=== PATIENT | male | born 1980 | race Caucasian/White ===

== ENCOUNTER → 2020-10-24 | Outpatient (CLI) | payer BC ==
--- NOTE | 2020-10-24 08:08 | US ---
EXAMINATION TYPE: US abdomen complete DATE OF EXAM: 10/24/2020 COMPARISON: NONE CLINICAL HISTORY: R10.11 Right upper quadrant pain. RUQ pain radiating to right shoulder EXAM MEASUREMENTS: Liver Length: 19.4 cm Gallbladder Wall: 0.2 cm CBD: 0.4 cm Spleen: 13.2 x 10.0 x 5.6 cm Right Kidney: 14.3 x 5.7 x 5.3 cm Left Kidney: 13.8 x 6.7 x 5.7 cm Pancreas: hyperechoic with mid and tail obscured by overlying bowel gas Liver: enlarged, attenuated posteriorly suggests fatty liver Gallbladder: wnl Evidence for sonographic Gibson's sign: no CBD: wnl Spleen: hyperechoic, shadowing focus lateral spleen suggests splenic granuloma = 1.4 x 1.4 x 0.8cm; mildly prominent spleen as just greater than13.0cm. Right Kidney: No hydronephrosis or masses seen Left Kidney: No hydronephrosis or masses seen Upper IVC: wnl Abd Aorta: wnl The intrahepatic portion of the IVC and proximal abdominal aorta are within normal limits. There i s no evidence of cholelithiasis. Common bile duct is unremarkable. The visualized portions of the p ancreas are homogenous. Kidneys are symmetric and free of hydronephrosis. No renal lesions are se en. IMPRESSION: 1. Hepatomegaly with underlying fatty hepatic infiltration. 2. Borderline splenic prominence.
== END | disposition home or self-care (01) ==
LOC: RADUSWWP 06:56
PROVIDERS: ATTEND Internal Medicine
DX: K76.0 Fatty (change of) liver, not elsewhere classified (principal); D73.89 Other diseases of spleen
CPT/HCPCS: 76700

== ENCOUNTER → 2020-12-01 | Outpatient (CLI) | payer BC ==
[2020-12-01 18:24] LABS: Basophils # (A) 0.03 X 10*3/uL (0.00-0.10); Basophils % (A) 0.4 %; Eosinophils # (A) 0.04 X 10*3/uL (0.04-0.35); Eosinophils % (A) 0.6 %; HCT 46.2 % (39.6-50.0); HGB 15.1 g/dL (13.0-17.0); Lymphocytes # (A) 2.19 X 10*3/uL (0.90-5.00); Lymphocytes % (A) 32.7 %; MCH 29.1 pg (27.0-32.0); MCHC 32.7 g/dL (32.0-37.0); Mean Platelet Volume 10.1 fL (9.5-12.2); Monocytes # (A) 0.51 X 10*3/uL (0.20-1.00); Monocytes % (A) 7.6 %; Neutrophils # (A) 3.91 X 10*3/uL (1.80-7.70); Neutrophils % (A) 58.4 %; Platelet Count 248 X 10*3/uL (140-440); RBC 5.19 X 10*6/uL (4.40-5.60); RDW 14.2 % (11.5-14.5)
[2020-12-01 19:16] LABS: % Iron Saturation 19.73 (15.00-50.00); African American GFR (CKD) 109.4 (60.0-200.0); Albumin 4.6 g/dL (3.80-4.90); Albumin/Globulin Ratio 2.09 (1.60-3.17); Anion Gap 11.3 mmol/L (4.00-12.00); Calcium 9.7 mg/dL (8.7-10.3); Carbon Dioxide 25.7 mmol/L (21.6-31.8); Globulin 2.2 g/dL (1.6-3.3); Non-African American GFR(CKD) 94.4 (60.0-200.0); Potassium 3.9 mmol/L (3.5-5.5); Total Bilirubin 0.6 mg/dL (0.3-1.2); Total Protein 6.8 g/dL (6.2-8.2)
[2020-12-01 19:23] LABS: INR 0.95 (0.90-1.11); Prothrombin Time 10.4 sec (9.9-11.9)
[2020-12-01 19:24] LABS: Protein, Total 6.6 g/dL (6.2-8.2)
[2020-12-01 19:57] LABS: Ferritin 462.6 ng/mL (22.0-322.0)
[2020-12-02 10:14] LABS: Ceruloplasmin 28.5 mg/dL (20.0-60.0)
[2020-12-02 11:16] LABS: Liver/Kidney Microsome Antibod 1.5 UNITS (<=20)
== END | disposition home or self-care (01) ==
LOC: LABWHC1 14:29
PROVIDERS: ATTEND Internal Medicine
DX: R16.2 Hepatomegaly with splenomegaly, not elsewhere classified (principal)
CPT/HCPCS: 36415; 80053; 82103; 82104; 82390; 82728; 83516; 83540; 83550; 84165; 85025; 85610; 86038; 86376

== ENCOUNTER 2024-02-17 14:19 | Inpatient (IN) | payer BC ==
[2024-02-17] MEDS ORDERED: NALOXONE 0.4 MG/ML 1 ML VIAL IV PRN (14:46)
--- NOTE | 2024-02-17 14:47 | ED ---
General Adult HPI - General Chief complaint: Chest Pain Stated complaint: Chest Pain Time Seen by Provider: 02/17/24 14:44 Source: patient, RN notes reviewed, old records reviewed Mode of arrival: ambulatory Limitations: no limitations - History of Present Illness Initial comments: 23-year-old male with chest pain which began yesterday evening. Patient had attributed his symptoms to drinking 1 or 2 drinks of alcohol. His pain persisted today despite no further drinking. He states the pain did radiate to his upper shoulders. Patient has history of hypertension. He is a non-smoker, nondiabetic. No prior history of CAD. - Related Data Home Medications Medication Instructions Recorded Confirmed amLODIPine BESYLATE/BENAZEPRIL 1 cap PO DAILY 02/17/24 02/17/24 [amLODIPine BESYLATE/BENAZEPRIL 10-40 mg] Allergies Allergy/AdvReac Type Severity Reaction Status Date / Time No Known Allergies Allergy Verified 02/17/24 15:02 Review of Systems ROS Statement: Those systems with pertinent positive or pertinent negative responses have been documented in the HPI. ROS Other: All systems not noted in ROS Statement are negative. Past Medical History Past Medical History: Hypertension History of Any Multi-Drug Resistant Organisms: None Reported Past Surgical History: No Surgical Hx Reported Past Psychological History: No Psychological Hx Reported Smoking Status: Never smoker Past Alcohol Use History: None Reported Past Drug Use History: None Reported General Exam Limitations: no limitations General appearance: alert, in no apparent distress Head exam: Present: atraumatic, normocephalic Eye exam: Present: normal appearance, PERRL ENT exam: Present: normal exam Neck exam: Present: normal inspection. Absent: tenderness, meningismus Respiratory exam: Present: normal lung sounds bilaterally. Absent: respiratory distress, wheezes Cardiovascular Exam: Present: regular rate, normal rhythm GI/Abdominal exam: Present: soft. Absent: distended, tenderness, guarding Extremities exam: Present: normal inspection, normal capillary refill Neurological exam: Present: alert, oriented X3, CN II-XII intact. Absent: motor sensory deficit Psychiatric exam: Present: normal affect, normal mood Skin exam: Present: warm, dry, intact. Absent: cyanosis, diaphoretic Course Vital Signs 02/17/24 14:22 Temperature 98.1 F Pulse Rate 110 H Respiratory 20 Rate Blood Pressure 165/107 O2 Sat by Pulse 99 Oximetry Medical Decision Making - Medical Decision Making Was pt. sent in by a medical professional or institution (TAMI French, CREAM BEATER, urgent care, hospital, or [facility]...) When possible be specific @ -No Did you speak to anyone other than the patient for history (EMS, parent, family, police, friend...)? What history was obtained from this source @ -No Did you review nursing and triage notes (agree or disagree)? Why? @ -I reviewed and agree with nursing and triage notes Were old charts reviewed (outside hosp., previous admission, EMS record, old EKG, old radiological studies, urgent care reports/EKG's, [facility] records)? Report findings @ -No old charts were reviewed Differential Chest Pain: Stable Angina, Unstable Angina, STEMI, NSTEMI Aortic Dissection, Pneumothorax, Musculoskeletal, Esophageal Spasm GERD, Cholecystitis, Pancreatitis, Zoster, this is not meant to be an all-inclusive list. EKG interpreted by me (3pts min.). @ -[BG: Sinus tachycardia with a rate of 108, PVC, PA interval 182, QRS duration 94, QTc 396, ST segment elevation in V2 and V3, ST segment depression in 3 and aVF. Acute NH X-rays interpreted by me (1pt min.). @ -None done CT interpreted by me (1pt min.). @ -None done U/S interpreted by me (1pt. min.). @ -None done What testing was considered but not performed or refused? (CT, X-rays, U/S, labs)? Why? @ -None What meds were considered but not given or refused? Why? @ -None Did you discuss the management of the patient with other professionals (professionals i.e. TAMI French, CREAM BEATER, lab, RT, psych nurse, outreach and education social worker, manager commercial, teacher, environmental compliance officer, finish production manager)? Give summary @ -[Case discussed with Dr. Tomas, and Dr. Edwards covering for cardiology Was smoking cessation discussed for >3mins.? @ -No Was critical care preformed (if so, how long)? @ -[yes 35 minutes Were there social determinants of health that impacted care today? How? (Homelessness, low income, unemployed, alcoholism, drug addiction, transportation, low edu. Level, literacy, decrease access to med. care, shelter, rehab)? @ -No Was there de-escalation of care discussed even if they declined (Discuss DNR or withdrawal of care, Hospice)? DNR status @ -No What co-morbidities impacted this encounter? (DM, HTN, Smoking, COPD, CAD, Cancer, CVA, ARF, Chemo, Hep., AIDS, mental health diagnosis, sleep apnea, morbid obesity)? @ -[Hypertension Was patient admitted / discharged? Hospital course, mention meds given and route, prescriptions, significant lab abnormalities, going to OR and other pertinent info. @ -3-year-old male presenting with chest pain which began yesterday evening. Pain radiated to the bilateral upper shoulders. Patient has no prior history of CAD. EKG shows ST segment elevation with reciprocal change. Network Operations Center Engineer was activated and the patient was taken urgently to the Network Operations Center Engineer for intervention. Given aspirin, Lipitor, and heparin in the emergency department. Undiagnosed new problem with uncertain prognosis? @ -No Drug Therapy requiring intensive monitoring for toxicity (Heparin, Nitro, Insu jose, Cardizem)? @ -No Were any procedures done? @ -No Diagnosis/symptom? @ -[STEMI Acute, or Chronic, or Acute on Chronic? @ -Acute Uncomplicated (without systemic symptoms) or Complicated (systemic symptoms)? @ -[default Side effects of treatment? @ -No Exacerbation, Progression, or Severe Exacerbation? @ -No Poses a threat to life or bodily function? How? (Chest pain, USA, NH, pneumonia, PE, COPD, DKA, ARF, appy, cholecystitis, CVA, Diverticulitis, Homicidal, Suicidal, threat to staff... and all critical care pts) @ -Yes, ACS - Lab Data Result diagrams: 02/17/24 14:44 Lab Results 02/17/24 Range/Units 14:44 WBC 11.8 H (3.8-10.6) k/uL RBC 5.24 (4.30-5.90) m/uL Hgb 14.5 (13.0-17.5) gm/dL Hct 45.0 (39.0-53.0) % MCV 86.0 (80.0-100.0) fL MCH 27.8 (25.0-35.0) pg MCHC 32.3 (31.0-37.0) g/dL RDW 14.1 (11.5-15.5) % Plt Count 287 (150-450) k/uL MPV 7.1 Neutrophils % 69 % Lymphocytes % 24 % Monocytes % 5 % Eosinophils % 1 % Basophils % 0 % Neutrophils # 8.1 H (1.3-7.7) k/uL Lymphocytes # 2.8 (1.0-4.8) k/uL Monocytes # 0.6 (0-1.0) k/uL Eosinophils # 0.1 (0-0.7) k/uL Basophils # 0.0 (0-0.2) k/uL Critical Care Time Critical Care Time: Yes Total Critical Care Time: 35 Disposition Clinical Impression: ST elevation myocardial infarction (STEMI) Disposition: ADMITTED IP TO THIS HOSP Condition: Serious Is patient prescribed a controlled substance at d/c from ED?: No Referrals: Mustahpa Fenton [Primary Care Provider] - 1-2 days Time of Disposition: 14:40
[2024-02-17] MEDS: HEPARIN SODIUM 1,000 UN/ML (10ML VL) IV ONE (14:49)
[2024-02-17] MEDS: ATORVASTATIN 80 MG TAB PO STA (14:49)
[2024-02-17] MEDS: ASPIRIN 325 MG TAB PO STA (14:49)
[2024-02-17] MEDS ORDERED: HEPARIN SODIUM 1,000 UN/ML (10ML VL) ONE (14:50)
[2024-02-17] MEDS ORDERED: LIDOCAINE 1% INJ 10MG/ML (20 ML MDV) ONE (14:50)
[2024-02-17] MEDS ORDERED: VERAPAMIL 2.5 MG/ML 2 ML AMP ONE (14:50)
[2024-02-17] MEDS ORDERED: fentaNYL (PF) 50 MCG/ML 2 ML AMP ONE (14:50)
[2024-02-17 15:06] LABS: Basophils % (A) 0 %; Eosinophils # (A) 0.1 k/uL (0-0.7); Eosinophils % (A) 1 %; HGB 14.5 gm/dL (13.0-17.5); Lymphocytes # (A) 2.8 k/uL (1.0-4.8); Lymphocytes % (A) 24 %; MCH 27.8 pg (25.0-35.0); MCHC 32.3 g/dL (31.0-37.0); Mean Platelet Volume 7.1; Monocytes # (A) 0.6 k/uL (0-1.0); Monocytes % (A) 5 %; Neutrophils # (A) 8.1 k/uL (1.3-7.7); Neutrophils % (A) 69 %; Platelet Count 287 k/uL (150-450); RBC 5.24 m/uL (4.30-5.90); RDW 14.1 % (11.5-15.5); WBC 11.8 k/uL (3.8-10.6)
--- NOTE | 2024-02-17 15:09 | XR ---
EXAMINATION TYPE: XR chest 1V DATE OF EXAM: 02/17/2024 3:00 PM CLINICAL INDICATION:Male, 43 years old with history of Chest Pain; COMPARISON: None TECHNIQUE: XR chest 1V Frontal view of the chest. FINDINGS: Lungs/Pleura: There is no evidence of pleural effusion, focal consolidation, or pneumothorax. Pulmonary vascularity: Unremarkable. Heart/mediastinum: Cardiomediastinal silhouette is unremarkable. Musculoskeletal: No acute osseous pathology. IMPRESSION: No acute cardiopulmonary disease/process.
[2024-02-17] MEDS: LIDOCAINE 1% INJ 10MG/ML (20 ML MDV) SQ ONE ×2 (15:10→15:12)
[2024-02-17] MEDS: fentaNYL (PF) 50 MCG/ML 2 ML AMP IVP ONE (15:11)
[2024-02-17] MEDS: VERAPAMIL SYRINGE (5 MG/10 ML) INTRAARTER ONE (15:12)
[2024-02-17] MEDS: MIDAZOLAM 2 MG/2 ML VIAL IVP ONE ×3 (15:12)
[2024-02-17] MEDS: HEPARIN SODIUM 1,000 UN/ML (10ML VL) IVP ONE (15:14)
[2024-02-17] MEDS: SODIUM CHLORIDE 0.9% 1,000 ML IV ONE (15:14)
[2024-02-17] MEDS ORDERED: MORPHINE SULFATE 4 MG/ML SYRINGE ONE (15:16)
[2024-02-17] MEDS: MORPHINE SULFATE 4 MG/ML SYRINGE IVP ONE ×2 (15:16)
[2024-02-17] MEDS ORDERED: TICAGRELOR 90 MG TAB ONE (15:18)
[2024-02-17] MEDS: TICAGRELOR 90 MG TAB PO ONE (15:19)
[2024-02-17 15:25] LABS: ALT 46 U/L (4-49); AST 33 U/L (17-59); African American GFR (CKD) >90 (>60 ml/min/1.73 sqM); Albumin 4.5 g/dL (3.5-5.0); Alkaline Phosphatase 92 U/L (38-126); Anion Gap 10 mmol/L; Blood Urea Nitrogen 16 mg/dL (9-20); Calcium 8.9 mg/dL (8.4-10.2); Carbon Dioxide 22 mmol/L (22-30); Chloride 106 mmol/L (98-107); Glucose 144 mg/dL (74-99); Non-African American GFR(CKD) >90 (>60 ml/min/1.73 sqM); Potassium 3.8 mmol/L (3.5-5.1); Sodium 138 mmol/L (137-145); Total Bilirubin 0.5 mg/dL (0.2-1.3); Total Protein 7.3 g/dL (6.3-8.2)
[2024-02-17 15:26] LABS: INR 0.9 (<1.2); Partial Thromboplastin Time 22.8 sec (22.0-30.0); Prothrombin Time 9.9 sec (10.0-12.5)
[2024-02-17] MEDS: IOPAMIDOL-370 100ML BTL INJ ONE (15:45)
[2024-02-17] MEDS ORDERED: MAG HYDROX/AL HYDROX/SIMETH 30 ML CUP PO PRN (15:48)
[2024-02-17] MEDS ORDERED: NITROGLYCERIN SL TABS 0.4 MG TAB SUBLINGUAL PRN (15:48)
[2024-02-17] MEDS ORDERED: ATROPINE SULFATE 0.1 MG/ML 10ML SYRINGE IV PRN (15:48)
[2024-02-17] MEDS ORDERED: RX INFO: IV CONTRAST WAS GIVEN 1 EACH MISC MISCELLANE PRN (15:48)
[2024-02-17 16:08] LABS: Glucose,Whole Blood 107 mg/dL (70-110)
[2024-02-17] MEDS: SODIUM CHLORIDE 0.9% 1,000 ML in EMPTY BAG 1 BAG IV SCH (17:10)
--- NOTE | 2024-02-17 19:55 | P.CRDCN ---
History of Present Illness Consult date: 02/17/24 Chief complaint: Chest pain History of present illness: The patient is a pleasant 43-year-old gentleman with a past medical history significant for morbid obesity and hypertension presented to the emergency department complaining of chest discomfort. The discomfort started the day before. The patient describes discomfort as a pressure and squeezing sensation across the chest with radiation to the left arm associated with shortness of breath but no dizziness or lightheadedness and no feeling of heart racing or fluttering and no presyncope or syncope and no sweating. The discomfort got worse within the last several hours and he decided to come to the emergency department for further evaluation. EKG in the emergency department reveals sinus mechanism with ST segment elevation in the anteroseptal leads. With that being said an emergent heart catheterization was advised and that revealed acute total occlusion of the proximal LAD with a large thrombus burden. The patient underwent successful PCI of the LAD with placement of drug-eluting stent in the proximal left anterior descending artery with adjunctive use of aspiration thro mbectomy and removal of related thrombus. By the end we achieved TARIK-3 flow and the patient was asymptomatic with mild residual ST changes anteriorly. Procedure was performed from the right radial artery. The patient reports history of hypertension and he is overweight. He stated he drinks alcohol as well. No other comorbidities. No family history. The examination is remarkable for stable vital signs with a distant heart sounds and soft systolic murmur and clear breathing sounds bilaterally and no edema was noted in the lower extremities Assessment Acute anterior ST elevation myocardial infarction Occluded LAD with a large thrombus burden Successful PCI of the LAD as described above Multiple comorbid conditions including overweight and hypertension and dyslipidemia Plan Dual antiplatelet therapy Aggressive cholesterol control Aggressive risk factors modification ICU admission Monitor the patient hemodynamically Obtain an echocardiogram with Doppler Follow-up with the patient Past Medical History Past Medical History: Hypertension History of Any Multi-Drug Resistant Organisms: None Reported Past Surgical History: No Surgical Hx Reported Past Anesthesia/Blood Transfusion Reactions: No Reported Reaction Past Psychological History: No Psychological Hx Reported Smoking Status: Never smoker Past Alcohol Use History: None Reported Past Drug Use History: None Reported - Past Family History Mother Family Medical History: Diabetes Mellitus, Hypertension Medications and Allergies Home Medications Medication Instructions Recorded Confirmed Type amLODIPine BESYLATE/BENAZEPRIL 1 cap PO DAILY 02/17/24 02/17/24 History [amLODIPine BESYLATE/BENAZEPRIL 10-40 mg] Allergies Allergy/AdvReac Type Severity Reaction Status Date / Time No Known Allergies Allergy Verified 02/17/24 15:02 Physical Exam Vitals: Vital Signs Temp Pulse Pulse Resp BP Pulse Ox 02/17/24 19:00 79 12 149/97 95 02/17/24 18:30 92 12 141/96 95 02/17/24 18:00 87 15 130/99 96 02/17/24 17:30 86 12 138/96 95 02/17/24 17:00 89 12 95 02/17/24 16:45 96 21 136/89 96 02/17/24 16:30 104 H 12 138/86 96 02/17/24 16:15 97 15 134/89 95 02/17/24 16:05 98.6 F 105 H 14 137/90 95 02/17/24 14:45 126 H 120 H 16 173/109 97 02/17/24 14:22 98.1 F 110 H 20 165/107 99 Intake and Output 02/17/24 02/17/24 02/17/24 06:59 14:59 22:59 Intake Total 500 Balance 500 Intake: IV 200 Intake, IV Titration 300 Amount Sodium Chloride 0.9% 1, 300 000 ml In Empty Bag 1 bag @ 75 mls/hr IV .[id number] [facility] Rx#:[id number] Other: Voiding Method Toilet Urinal # Voids 1 Weight 149.685 kg 149.685 kg Results 02/17/24 14:44 02/17/24 14:44 Cardiac Enzymes 02/17/24 02/17/24 Range/Units 14:44 14:44 AST 33 (17-59) U/L Troponin I 0.095 H* (0.000-0.034) ng/mL Coagulation 02/17/24 Range/Units 14:44 PT 9.9 L (10.0-12.5) sec APTT 22.8 (22.0-30.0) sec CBC 02/17/24 Range/Units 14:44 WBC 11.8 H (3.8-10.6) k/uL RBC 5.24 (4.30-5.90) m/uL Hgb 14.5 (13.0-17.5) gm/dL Hct 45.0 (39.0-53.0) % Plt Count 287 (150-450) k/uL Comprehensive Metabolic Panel 02/17/24 Range/Units 14:44 Sodium 138 (137-145) mmol/L Potassium 3.8 (3.5-5.1) mmol/L Chloride 106 (98-107) mmol/L Carbon Dioxide 22 (22-30) mmol/L BUN 16 (9-20) mg/dL Creatinine 1.02 (0.66-1.25) mg/dL Glucose 144 H (74-99) mg/dL Calcium 8.9 (8.4-10.2) mg/dL AST 33 (17-59) U/L ALT 46 (4-49) U/L Alkaline Phosphatase 92 (38-126) U/L Total Protein 7.3 (6.3-8.2) g/dL Albumin 4.5 (3.5-5.0) g/dL Current Medications Generic Name Dose Route Start Last Admin Trade Name Freq PRN Reason Stop Dose Admin Al Hydroxide/Mg Hydroxide 30 ml 02/17/24 15:48 Mag Hydrox/Al Hydrox/Simeth 30 Ml Cup PO Q4HR PRN Heartburn Aspirin 81 mg 02/18/24 09:00 Aspirin 81 Mg PO DAILY BENITA Atorvastatin Calcium 80 mg 02/17/24 21:00 Atorvastatin 80 Mg Tab PO HS BENITA Atropine Sulfate 0.5 mg 02/17/24 15:48 Atropine Sulfate 0.1 Mg/Ml 10ml Syringe IV ONCE PRN Symptomatic Bradycardia Sodium Chloride 1,000 ml/ IV 1,000 mls @ 75 mls/hr 02/17/24 16:00 02/17/24 17:10 Solution IV 02/17/24 21:01 75 mls/hr .[id number] BENITA Administration Lisinopril 5 mg 02/17/24 21:00 Lisinopril 5 Mg Tab PO HS BENITA Metoprolol Tartrate 25 mg 02/17/24 21:00 Metoprolol Tartrate 25 Mg Tab PO BID BENITA Miscellaneous Information 1 each 02/17/24 15:48 Rx Info: Iv Contrast Was Given 1 Each Misc MISCELLANE 02/19/24 15:48 DAILY PRN Per Protocol Naloxone HCl 0.2 mg 02/17/24 14:46 Naloxone 0.4 Mg/Ml 1 Ml Vial IV Q2M PRN Opioid Reversal Nitroglycerin 0.4 mg 06/07/24 15:48 Nitroglycerin Sl Tabs 0.4 Mg Tab SUBLINGUAL Q5M PRN Chest Pain Ticagrelor 90 mg 02/17/24 21:00 Ticagrelor 90 Mg Tab PO BID [facility] Protocol Zolpidem Tartrate 5 mg 02/17/24 15:48 Zolpidem 5 Mg Tab PO HS PRN Insomnia Intake and Output 02/17/24 02/17/24 02/17/24 06:59 14:59 22:59 Intake Total 500 Balance 500 Intake: IV 200 Intake, IV Titration 300 Amount Sodium Chloride 0.9% 1, 300 000 ml In Empty Bag 1 bag @ 75 mls/hr IV .[id number] [facility] Rx#:[id number] Other: Voiding Method Toilet Urinal # Voids 1 Weight 149.685 kg 149.685 kg Patient Weight 02/18/24 06:59 Weight 149.685 kg 02/17/24 14:44 02/17/24 14:44
--- NOTE | 2024-02-17 20:01 | P.PCN ---
Date of Procedure: 02/17/24 Operative Findings: Cardiac catheterization and percutaneous coronary intervention Performing physician Adiel Edwards MD Procedure performed 1. Selective right and left coronary angiogram 2. Successful PCI of the proximal LAD using 4.0 x 28 mm Xience EDVIN with an excellent angiographic results and reduction of stenosis from 100% to 0% 3. Adjunctive use of intravascular imaging and aspiration thrombectomy 4. Ultrasound-guided access of the right radial artery Complications None Level of sedation Moderate sedation length of 23 minutes Procedure description After obtaining informed consent the patient was brought to the cardiac Scrum Coach. The right radial artery was cannulated using micropuncture technique under ultrasound guidance and the micropuncture wire passed easily then I placed a 6 Welsh 11 cm sheath at the right radial artery. Anticoagulation was initiated and continued using heparin with continuous ACT monitoring. Also please note that the patient was given 2 mg of verapamil intra-arterial. Subsequently I did selective right and left coronary angiogram using a JR4 and JL 3.5 catheters. After that I decided to intervene on the left anterior descending artery. Anticoagulation continued using heparin. Subsequently I did engage the left main using JL 3.5 guiding catheter. After that I did wire the LAD using RNS or wire. Subsequently I did balloon angioplasty using 2.5 x 12 mm balloon and I was able to restore some of flow to the LAD with distal TARIK I flow only. There was a large thrombus burden and because of that I decided to do aspiration thrombectomy using the export catheter with extraction of some thrombus. After that I did deploy a 4.0 x 28 mm stent but the stent was positioned under fluoroscopy guidance and deployed under fluoroscopy guidance. Postdilatation was performed initially using 4 mm noncompliant balloon but subsequently intravascular ultrasound was performed again and showed that the midportion of the stent was not well expanded and for that reason I decided to postdilated again using 4.5 mm balloon. Final angiogram showed excellent angiographic results and the procedure was completed with no complication. Selective coronary angiogram The RCA is a large-caliber vessel and the dominant vessel and appears to be angiographically normal The left main is angiographically normal The LCx is a large-caliber vessel nondominant vessel and appears to be also angiographically normal The LAD is a large-caliber vessel appears to be occluded in the proximal to midportion with a large thrombus burden Hemodynamics LVEDP was about 20 mmHg with no significant gradient across aortic valve Conclusion Acute total occlusion of the proximal LAD with a large thrombus burden. Successful PCI of the LAD as described above Elevated left-sided filling pressure Postprocedure management Dual antiplatelet therapy using aspirin and Brilinta for at least 12 months Aggressive cholesterol control and risk factors modification Follow-up with the patient
[2024-02-17] MEDS: TICAGRELOR 90 MG TAB PO SCH (20:15)
[2024-02-17] MEDS: ATORVASTATIN 80 MG TAB PO SCH (20:15)
[2024-02-17] MEDS: lisinopriL 5 MG TAB PO SCH (20:15)
[2024-02-17] MEDS: METOPROLOL TARTRATE 25 MG TAB PO SCH (20:15)
--- NOTE | 2024-02-17 21:58 | P.HPIM ---
History of Present Illness H&P Date: 02/17/24 Chief Complaint: Chest pain 43-year-old gentleman with a past medical history significant for morbid obesity and hypertension presented to the emergency department complaining of chest discomfort. The discomfort started the day before. The patient describes discomfort as a pressure and squeezing sensation across the chest with radiation to the left arm associated with shortness of breath but no dizziness or lightheadedness and no feeling of heart racing or fluttering and no presyncope or syncope and no sweating. The discomfort got worse within the last several hours and he decided to come to the emergency department for further evaluation. EKG in the emergency department reveals sinus mechanism with ST segment elevation in the anteroseptal leads. With that being said an emergent heart catheterization was advised and that revealed acute total occlusion of the proximal LAD with a large thrombus burden. The patient underwent successful PCI of the LAD with placement of drug-eluting stent in the proximal left anterior descending artery with adjunctive use of aspiration thrombectomy and removal of related thrombus. By the end we achieved TARIK-3 flow and the patient was asymptomatic with mild residual ST changes anteriorly. Procedure was performed from the right radial artery. The patient reports history of hypertension and he is overweight. Review of Systems REVIEW OF SYSTEMS: CONSTITUTIONAL: No fever, no malaise, no fatigue. HEENT: No recent visual problems or hearing problems. Denied any sore throat. CARDIOVASCULAR: No chest pain, orthopnea, PND, no palpitations, no syncope. PULMONARY: No shortness of breath, no cough, no hemoptysis. GASTROINTESTINAL: No diarrhea, no nausea, no vomiting, no abdominal pain. NEUROLOGICAL: No headaches, no weakness, no numbness. HEMATOLOGICAL: Denies any bleeding or petechiae. GENITOURINARY: Denies any burning micturition, frequency, or urgency. MUSCULOSKELETAL/RHEUMATOLOGICAL: Denies any joint pain, swelling, or any muscle pain. ENDOCRINE: Denies any polyuria or polydipsia. The rest of the 14-point review of systems is negative. Past Medical History Past Medical History: Hypertension History of Any Multi-Drug Resistant Organisms: None Reported Past Surgical History: No Surgical Hx Reported Past Psychological History: No Psychological Hx Reported Smoking Status: Never smoker Past Alcohol Use History: None Reported Past Drug Use History: None Reported - Past Family History Mother Family Medical History: Diabetes Mellitus, Hypertension Medications and Allergies Home Medications Medication Instructions Recorded Confirmed Type amLODIPine BESYLATE/BENAZEPRIL 1 cap PO DAILY 02/17/24 02/17/24 History [amLODIPine BESYLATE/BENAZEPRIL 10-40 mg] Allergies Allergy/AdvReac Type Severity Reaction Status Date / Time No Known Allergies Allergy Verified 02/17/24 15:02 Physical Exam Vitals: Vital Signs Temp Pulse Resp BP Pulse Ox 02/17/24 14:22 98.1 F 110 H 20 165/107 99 Intake and Output 02/17/24 02/17/24 02/17/24 06:59 14:59 22:59 Other: Weight 149.685 kg General appearance: Present: average body habitus, cooperative, no acute distress Eyes: Present: anicteric sclerae, EOMI, PERRLA, normal appearance ENT: Present: hearing grossly normal, normal oropharynx Neck: Present: normal ROM. Absent: lymphadenopathy, rigidity, thyromegaly Carotids: negative: bruit present Thyroid: bilateral: normal size, negative: enlarged, nodule Respiratory: bilateral: CTA, negative: rales, rhonchi, wheezing Cardiovascular Rhythm: regular: normal: S1, S2 Abnormal Heart Sounds: Absent: systolic murmur, diastolic murmur- Gas trointestinal General gastrointestinal: Present: normal bowel sounds, soft. Absent: distended, organomegaly, tenderness Genitourinary Comment(s): deferred Integumentary: Present: normal turgor. Absent: jaundiced, rash, ulcer Neurologic: Present: CNII-XII intact. Absent: focal deficits Musculoskeletal: Present: gait normal, strength equal bilaterally Results CBC & Chem 7: 02/17/24 14:44 02/17/24 14:44 Assessment and Plan Assessment: 1. Acute anterior ST elevation myocardial infarction --Patient has been evaluated by cardiology in ED and is being taken to Foreclosure Specialist -2D echo is ordered and pending 2. Hypertension; patient takes amlodipine/benazepril 40/10 mg 1 daily; we will continue with home medications and monitor blood pressure closely for any further adjustments 3. Hyperlipidemia; patient has been placed on Lipitor 80 mg p.o. nightly by cardiology 4. Obesity; counseling done on need for weight reduction DVT prophylaxis SCDs/IV heparin; CODE STATUS; full code
[2024-02-18] MEDS: ZOLPIDEM 5 MG TAB PO PRN (00:42)
[2024-02-18 05:48] LABS: HCT 42.5 % (39.0-53.0); HGB 13.6 gm/dL (13.0-17.5); MCH 27.6 pg (25.0-35.0); MCHC 31.9 g/dL (31.0-37.0); MCV 86.5 fL (80.0-100.0); Mean Platelet Volume 7.1; Platelet Count 274 k/uL (150-450); RBC 4.91 m/uL (4.30-5.90); RDW 14.2 % (11.5-15.5); WBC 12.5 k/uL (3.8-10.6)
[2024-02-18 06:06] LABS: African American GFR (CKD) >90 (>60 ml/min/1.73 sqM); Anion Gap 6 mmol/L; Blood Urea Nitrogen 10 mg/dL (9-20); Calcium 8.6 mg/dL (8.4-10.2); Carbon Dioxide 21 mmol/L (22-30); Chloride 107 mmol/L (98-107); Glucose 116 mg/dL (74-99); Non-African American GFR(CKD) >90 (>60 ml/min/1.73 sqM); Potassium 3.8 mmol/L (3.5-5.1); Sodium 134 mmol/L (137-145)
--- NOTE | 2024-02-18 08:11 | P.PN ---
Subjective Progress Note Date: 02/18/24 Principal diagnosis: ACS The patient is a pleasant 43-year-old gentleman with a past medical history significant for morbid obesity and hypertension presented to the emergency dep artment complaining of chest discomfort. The discomfort started the day before. The patient describes discomfort as a pressure and squeezing sensation across the chest with radiation to the left arm associated with shortness of breath but no dizziness or lightheadedness and no feeling of heart racing or fluttering and no presyncope or syncope and no sweating. The discomfort got worse within the last several hours and he decided to come to the emergency department for further evaluation. EKG in the emergency department reveals sinus mechanism with ST segment elevation in the anteroseptal leads. With that being said an emergent heart catheterization was advised and that revealed acute total occlusion of the proximal LAD with a large thrombus burden. The patient underwent successful PCI of the LAD with placement of drug-eluting stent in the proximal left anterior descending artery with adjunctive use of aspiration thrombectomy and removal of related thrombus. By the end we achieved TARIK-3 flow and the patient was asymptomatic with mild residual ST changes anteriorly. Procedure was performed from the right radial artery. The patient reports history of hypertension and he is overweight. He stated he drinks alcohol as well. No other comorbidities. No family history. The examination is remarkable for stable vital signs with a distant heart sounds and soft systolic murmur and clear breathing sounds bilaterally and no edema was noted in the lower extremities February 18, 2024 The patient was seen and evaluated this morning. He is asymptomatic and hemodynamically stable. He continues to be on dual antiplatelet therapy along with high intensity statin. The echo still pending. The examination is remarkable for stable vital signs with a clear breathing sounds bilaterally and regular rate and rhythm and no edema was noted and good right radial pulse. Assessment Acute anterior ST elevation myocardial infarction Occluded LAD with a large thrombus burden Successful PCI of the LAD as described above Multiple comorbid conditions including overweight and hypertension and dyslipidemia Plan Dual antiplatelet therapy Aggressive cholesterol control Aggressive risk factors modification Follow-up on the echocardiogram Objective - Vital Signs Vital signs: Vital Signs Temp 98.5 F 02/18/24 04:00 Pulse 73 02/18/24 07:00 Resp 19 02/18/24 07:00 BP 116/78 02/18/24 07:00 Pulse Ox 95 02/18/24 07:00 FiO2 Intake & Output 02/17/24 02/18/24 02/18/24 18:59 06:59 18:59 Intake Total 425 825 Output Total 1 Balance 425 824 Weight 149.685 kg 151.8 kg Intake: IV 200 Intake, IV Titration 225 225 Amount Sodium Chloride 0.9% 1, 225 225 000 ml In Empty Bag 1 bag @ 75 mls/hr IV .[id number] [facility] Rx#:[id number] Oral 600 Output: Urine 1 Other: Voiding Method Toilet Toilet Urinal Urinal # Voids 1 1 - Labs CBC & Chem 7: 02/18/24 05:30 02/18/24 05:30 Labs: Abnormal Lab Results - Last 24 Hours (Table) 02/17/24 02/17/24 02/17/24 Range/Units 14:44 14:44 14:44 WBC 11.8 H (3.8-10.6) k/uL Neutrophils # 8.1 H (1.3-7.7) k/uL PT 9.9 L (10.0-12.5) sec Sodium (137-145) mmol/L Carbon Dioxide (22-30) mmol/L Glucose 144 H (74-99) mg/dL Troponin I (0.000-0.034) ng/mL 02/17/24 02/18/24 02/18/24 Range/Units 14:44 05:30 05:30 WBC 12.5 H (3.8-10.6) k/uL Neutrophils # (1.3-7.7) k/uL PT (10.0-12.5) sec Sodium 134 L (137-145) mmol/L Carbon Dioxide 21 L (22-30) mmol/L Glucose 116 H (74-99) mg/dL Troponin I 0.095 H* (0.000-0.034) ng/mL
[2024-02-18] MEDS: ASPIRIN 81 MG PO SCH (08:22)
[2024-02-18 10:18] LABS: Chol/HDL Ratio 1.73 Ratio; LDL Cholesterol,Calculated 41.7 mg/dL (0.0-131.0); VLDL Calculation 14.46 mg/dL (5.00-40.00)
[2024-02-18 13:57] VITALS: BMI 46.6
[2024-02-18] MEDS: POTASSIUM CHLORIDE ER 20 MEQ TAB.ER PO SCH (13:58)
--- NOTE | 2024-02-18 14:55 | CA ---
Transthoracic Echo Report Name: To Rivas Age: 43 Gender: M : 1980 Exam Date: 02/18/2024 08:38 Exam Location: [facility] Ht (in): 71 Wt (lb): 330 Ordering Physician: Adiel Edwards MD ([id number]) Attending/Referring Phys: Vehicle Care Specialist Justine Cha RDCS Procedure CPT: Indications: stemi Cardiac Hx: Technical Quality: Technically difficult study Contrast 1: Definity Total Dose (mL): 2 Contrast 2: Total Dose (mL): MEASUREMENTS (Male / Female) Normal Values 2D ECHO LV Diastolic Diameter PLAX 5.2 cm 4.2 - 5.9 / 3.9 - 5.3 cm LV Systolic Diameter PLAX 3.3 cm IVS Diastolic Thickness 1.3 cm 0.6 - 1.0 / 0.6 - 0.9 cm LVPW Diastolic Thickness 1.3 cm 0.6 - 1.0 / 0.6 - 0.9 cm LV Relative Wall Thickness 0.5 RV Internal Dim ED PLAX 3.7 cm LA Volume 73.2 cm??? 18 - 58 / 22 - 52 cm??? LA Volume Index 26.0 cm???/m??? 16 - 28 cm???/m??? M-MODE Aortic Root Diameter MM 3.8 cm LA Systolic Diameter MM 4.2 cm LA Ao Ratio MM 1.1 AV Cusp Separation MM 2.3 cm DOPPLER AV Peak Velocity 103.1 cm/s AV Peak Gradient 4.3 mmHg AV Mean Velocity 70.9 cm/s AV Mean Gradient 2.3 mmHg AV Velocity Time Integral 20.2 cm LVOT Peak Velocity 95.5 cm/s LVOT Peak Gradient 3.6 mmHg LVOT Velocity Time Integral 20.5 cm MV Area PHT 4.2 cm??? Mitral E Point Velocity 84.6 cm/s Mitral A Point Velocity 80.6 cm/s Mitral E to A Ratio 1.0 MV Deceleration Time 182.3 ms MV E' Velocity 6.8 cm/s Mitral E to MV E' Ratio 12.4 TR Peak Velocity 199.1 cm/s TR Peak Gradient 15.9 mmHg Right Ventricular Systolic Press 20.9 mmHg FINDINGS Left Ventricle Mildly increased left ventricular wall thickness. Left ventricular cavity size normal. Hypokinetic anterior wall. [place] hypokinetic. Apical anterior, apical lateral and apical septum are hypokinetic. Decreased systolic function. Left ventricular ejection fraction is estimated at 35-40 %. Grade 1 diastolic dysfunction. Right Ventricle Mild right ventricular dilatation. Right ventricular systolic pressure within normal limits. Right Atrium Right atrium not well visualized. Left Atrium Moderately increased left atrial volume. Mildly increased left atrial area. Mitral Valve Structurally normal mitral valve. Mild mitral regurgitation. Aortic Valve No aortic valve stenosis or regurgitation. Tricuspid Valve Structurally normal tricuspid valve. Mild tricuspid regurgitation. Pulmonic Valve Structurally normal pulmonic valve. Trace pulmonic regurgitation. Pericardium No pericardial effusion. Aorta Normal size aortic root and proximal ascending aorta. CONCLUSIONS Technically difficult study for interpretation LV systolic function is 35-40% with mid ventricle and apical hypokinesia Previewed by: Dr. Adiel Edwards MD (Electronically Signed) Final Date: 18 February 2024 14:54
--- NOTE | 2024-02-18 14:57 | P.PN ---
Subjective Progress Note Date: 02/18/24 43-year-old gentleman with a past medical history significant for morbid obesity and hypertension presented to the emergency department complaining of chest discomfort. The discomfort started the day before. The patient describes discomfort as a pressure and squeezing sensation across the chest with radiation to the left arm associated with shortness of breath but no dizziness or lightheadedness and no feeling of heart racing or fluttering and no presyncope or syncope and no sweating. The discomfort got worse within the last several hours and he decided to come to the emergency department for further evaluation. EKG in the emergency department reveals sinus mechanism with ST segment elevation in the anteroseptal leads. With that being said an emergent heart catheterization was advised and that revealed acute total occlusion of the proximal LAD with a large thrombus burden. The patient underwent successful PCI of the LAD with placement of drug-eluting stent in the proximal left anterior descending artery with adjunctive use of aspiration thrombectomy and removal of related thrombus. By the end we achieved TARIK-3 flow and the patient was asymptomatic with mild residual ST changes anteriorly. Procedure was performed from the right radial artery. The patient reports history of hypertension and he is overweight. Objective - Vital Signs Vital signs: Vital Signs Temp 98.5 F 02/18/24 08:00 Pulse 81 02/18/24 09:00 Resp 23 02/18/24 09:00 BP 130/77 02/18/24 09:00 Pulse Ox 96 02/18/24 09:00 FiO2 Intake & Output 02/17/24 02/18/24 02/18/24 18:59 06:59 18:59 Intake Total 425 825 Output Total 1 Balance 425 824 Weight 149.685 kg 151.8 kg Intake: IV 200 Intake, IV Titration 225 225 Amount Sodium Chloride 0.9% 1, 225 225 000 ml In Empty Bag 1 bag @ 75 mls/hr IV .[id number] [facility] Rx#:[id number] Oral 600 Output: Urine 1 Other: Voiding Method Toilet Toilet Urinal Urinal # Voids 1 1 1 # Bowel Movements 1 - Exam General appearance: Present: average body habitus, cooperative, no acute distress Eyes: Present: anicteric sclerae, EOMI, PERRLA, normal appearance ENT: Present: hearing grossly normal, normal oropharynx Neck: Present: normal ROM. Absent: lymphadenopathy, rigidity, thyromegaly Carotids: negative: bruit present Thyroid: bilateral: normal size, negative: enlarged, nodule Respiratory: bilateral: CTA, negative: rales, rhonchi, wheezing Cardiovascular: regular: normal: S1, S2 Gastrointestinal: normal bowel sounds, soft. Absent: distended, organomegaly, tenderness Genitourinary Comment(s): deferred Integumentary: Present: normal turgor. Absent: jaundiced, rash, ulcer Neurologic: Present: CNII-XII intact. Absent: focal deficits Musculoskeletal: Present: gait normal, strength equal bilaterally - Labs CBC & Chem 7: 02/18/24 05:30 02/18/24 05:30 Labs: Abnormal Lab Results - Last 24 Hours (Table) 02/17/24 02/17/24 02/17/24 Range/Units 14:44 14:44 14:44 WBC 11.8 H (3.8-10.6) k/uL Neutrophils # 8.1 H (1.3-7.7) k/uL PT 9.9 L (10.0-12.5) sec Sodium (137-145) mmol/L Carbon Dioxide (22-30) mmol/L Glucose 144 H (74-99) mg/dL Troponin I (0.000-0.034) ng/mL HDL Cholesterol (40.00-60.00) mg/dL 02/17/24 02/18/24 02/18/24 Range/Units 14:44 05:30 05:30 WBC 12.5 H (3.8-10.6) k/uL Neutrophils # (1.3-7.7) k/uL PT (10.0-12.5) sec Sodium 134 L (137-145) mmol/L Carbon Dioxide 21 L (22-30) mmol/L Glucose 116 H (74-99) mg/dL Troponin I 0.095 H* (0.000-0.034) ng/mL HDL Cholesterol 76.80 H (40.00-60.00) mg/dL Assessment and Plan Assessment: 1. Acute anterior ST elevation myocardial infarction --Patient has been evaluated by cardiology in ED and is being taken to [facility] -2D echo is ordered and pending 2. Hypertension; patient takes amlodipine/benazepril 40/10 mg 1 daily; we will continue with home medications and monitor blood pressure closely for any further adjustments 3. Hyperlipidemia; patient has been placed on Lipitor 80 mg p.o. nightly by cardiology 4. Obesity; counseling done on need for weight reduction DVT prophylaxis SCDs/IV heparin; CODE STATUS; full code
--- NOTE | 2024-02-19 08:52 | P.PN ---
Subjective Progress Note Date: 02/19/24 Principal diagnosis: ACS The patient is a pleasant 43-year-old gentleman with a past medical history significant for morbid obesity and hypertension presented to the emergency dep artment complaining of chest discomfort. The discomfort started the day before. The patient describes discomfort as a pressure and squeezing sensation across the chest with radiation to the left arm associated with shortness of breath but no dizziness or lightheadedness and no feeling of heart racing or fluttering and no presyncope or syncope and no sweating. The discomfort got worse within the last several hours and he decided to come to the emergency department for further evaluation. EKG in the emergency department reveals sinus mechanism with ST segment elevation in the anteroseptal leads. With that being said an emergent heart catheterization was advised and that revealed acute total occlusion of the proximal LAD with a large thrombus burden. The patient underwent successful PCI of the LAD with placement of drug-eluting stent in the proximal left anterior descending artery with adjunctive use of aspiration thrombectomy and removal of related thrombus. By the end we achieved TARIK-3 flow and the patient was asymptomatic with mild residual ST changes anteriorly. Procedure was performed from the right radial artery. The patient reports history of hypertension and he is overweight. He stated he drinks alcohol as well. No other comorbidities. No family history. The examination is remarkable for stable vital signs with a distant heart sounds and soft systolic murmur and clear breathing sounds bilaterally and no edema was noted in the lower extremities February 18, 2024 The patient was seen and evaluated this morning. He is asymptomatic and hemodynamically stable. He continues to be on dual antiplatelet therapy along with high intensity statin. The echo still pending. The examination is remarkable for stable vital signs with a clear breathing sounds bilaterally and regular rate and rhythm and no edema was noted and good right radial pulse. February 19, 2024 The patient was seen and evaluated this morning. He underwent an echo yesterday and that revealed cardiomyopathy with a EF between 35 to 40% with mid ventricular and apical hypokinesia. Clinically he is doing well. He is asymptomatic. The pressure has been marginally low. Currently he is on dual an tiplatelet therapy along with lisinopril along with beta-miguel which I would consider adding small dose of Aldactone once the pressure is more stable. Examination is remarkable for stable vital signs besides marginally low blood pressure with clear breathing sounds bilaterally and no edema was noted. Assessment Acute anterior ST elevation myocardial infarction Occluded LAD with a large thrombus burden Successful PCI of the LAD as described above Cardiomyopathy as described above Multiple comorbid conditions including overweight and hypertension and dyslipidemia Plan Dual antiplatelet therapy Maximize medical treatment for cardiomyopathy Consider adding Aldactone once the pressure permit Continue beta-miguel and lisinopril Aggressive cholesterol control Aggressive risk factors modification Discharge home in the next 24 hours Objective - Vital Signs Vital signs: Vital Signs Temp 98.6 F 02/18/24 20:00 Pulse 76 02/19/24 04:00 Resp 18 02/19/24 04:00 BP 97/64 02/19/24 04:00 Pulse Ox 93 L 02/19/24 04:00 FiO2 Intake & Output 02/18/24 02/19/24 02/19/24 18:59 06:59 18:59 Intake Total 600 540 180 Output Total 0 0 Balance 600 540 180 Weight 151.8 kg Intake: Oral 600 540 180 Output: Urine 0 0 Other: Voiding Method Toilet Toilet # Voids 1 1 # Bowel Movements 1 - Labs CBC & Chem 7: 02/18/24 05:30 02/18/24 05:30 Labs: Abnormal Lab Results - Last 24 Hours (Table) 02/18/24 Range/Units 05:30 HDL Cholesterol 76.80 H (40.00-60.00) mg/dL
[2024-02-19 10:50] LABS: Basophils # (A) 0.1 k/uL (0-0.2); Basophils % (A) 0 %; Eosinophils # (A) 0.1 k/uL (0-0.7); Eosinophils % (A) 1 %; HCT 46.4 % (39.0-53.0); HGB 15.1 gm/dL (13.0-17.5); Lymphocytes # (A) 2.2 k/uL (1.0-4.8); Lymphocytes % (A) 17 %; MCH 28.4 pg (25.0-35.0); MCHC 32.5 g/dL (31.0-37.0); MCV 87.3 fL (80.0-100.0); Mean Platelet Volume 7.2; Monocytes # (A) 0.7 k/uL (0-1.0); Monocytes % (A) 6 %; Neutrophils # (A) 9.4 k/uL (1.3-7.7); Neutrophils % (A) 75 %; Platelet Count 284 k/uL (150-450); RBC 5.31 m/uL (4.30-5.90); RDW 14.3 % (11.5-15.5); WBC 12.6 k/uL (3.8-10.6)
[2024-02-20 07:17] LABS: Basophils # (A) 0.1 k/uL (0-0.2); Basophils % (A) 1 %; Eosinophils # (A) 0.1 k/uL (0-0.7); Eosinophils % (A) 0 %; HCT 45.5 % (39.0-53.0); HGB 14.8 gm/dL (13.0-17.5); Lymphocytes # (A) 2.3 k/uL (1.0-4.8); Lymphocytes % (A) 19 %; MCH 28.3 pg (25.0-35.0); MCHC 32.4 g/dL (31.0-37.0); MCV 87.4 fL (80.0-100.0); Mean Platelet Volume 6.8; Monocytes # (A) 0.6 k/uL (0-1.0); Monocytes % (A) 5 %; Neutrophils # (A) 9.4 k/uL (1.3-7.7); Neutrophils % (A) 75 %; Platelet Count 251 k/uL (150-450); RBC 5.21 m/uL (4.30-5.90); RDW 14.3 % (11.5-15.5); WBC 12.6 k/uL (3.8-10.6)
[2024-02-20 07:36] LABS: African American GFR (CKD) >90 (>60 ml/min/1.73 sqM); Anion Gap 5 mmol/L; Blood Urea Nitrogen 14 mg/dL (9-20); Calcium 8.9 mg/dL (8.4-10.2); Carbon Dioxide 24 mmol/L (22-30); Chloride 107 mmol/L (98-107); Glucose 99 mg/dL (74-99); Non-African American GFR(CKD) >90 (>60 ml/min/1.73 sqM); Sodium 136 mmol/L (137-145)
[2024-02-20] MEDS: DAPAGLIFLOZIN PROPANEDIOL 10 MG TABLET PO SCH (09:51)
--- NOTE | 2024-02-20 10:01 | P.PN ---
Subjective Progress Note Date: 02/19/24 43-year-old gentleman with a past medical history significant for morbid obesity and hypertension presented to the emergency department complaining of chest discomfort. The discomfort started the day before. The patient describes discomfort as a pressure and squeezing sensation across the chest with radiation to the left arm associated with shortness of breath but no dizziness or lightheadedness and no feeling of heart racing or fluttering and no presyncope or syncope and no sweating. The discomfort got worse within the last several hours and he decided to come to the emergency department for further evaluation. EKG in the emergency department reveals sinus mechanism with ST segment elevation in the anteroseptal leads. With that being said an emergent heart catheterization was advised and that revealed acute total occlusion of the proximal LAD with a large thrombus burden. The patient underwent successful PCI of the LAD with placement of drug-eluting stent in the proximal left anterior descending artery with adjunctive use of aspiration thrombectomy and removal of related thrombus. By the end we achieved TARIK-3 flow and the patient was asymptomatic with mild residual ST changes anteriorly. Procedure was performed from the right radial artery. The patient reports history of hypertension and he is overweight. 02/19/2024 Patient is seen and evaluated in room at bedside; no further complaint of chest pain; has been ambulating in the room Vital signs are reviewed and stable with temperature of 98.6, pulse 76 respiration 18 and blood pressure of 97/64 with O2 saturation 93% Patient underwent successful PCI of LAD with drug-eluting stent in the proximal LAD patient remains on dual antiplatelet therapy with high intensity statin. Echocardiogram completed reveals EF between 35 to 40% with mid ventricular and apical hypokinesia Cardiology recommending to continue with dual antiplatelet therapy, lisinopril, beta-blockers and considering to add small dose of Aldactone once blood pressure is stable Possible discharge in next 24 hours once cleared by cardiology Objective - Vital Signs Vital signs: Vital Signs Temp 98.5 F 02/19/24 08:15 Pulse 112 H 02/19/24 08:15 Resp 17 02/19/24 08:15 BP 138/92 02/19/24 08:15 Pulse Ox 97 02/19/24 08:15 FiO2 Intake & Output 02/18/24 02/19/24 02/19/24 18:59 06:59 18:59 Intake Total 600 540 180 Output Total 0 0 Balance 600 540 180 Weight 151.8 kg Intake: Oral 600 540 180 Output: Urine 0 0 Other: Voiding Method Toilet Toilet Toilet # Voids 1 1 # Bowel Movements 1 - Exam General appearance: Present: average body habitus, cooperative, no acute distress Eyes: Present: anicteric sclerae, EOMI, PERRLA, normal appearance ENT: Present: hearing grossly normal, normal oropharynx Neck: Present: normal ROM. Absent: lymphadenopathy, rigidity, thyromegaly Carotids: negative: bruit present Thyroid: bilateral: normal size, negative: enlarged, nodule Respiratory: bilateral: CTA, negative: rales, rhonchi, wheezing Cardiovascular: regular: normal: S1, S2 Gastrointestinal: normal bowel sounds, soft. Absent: distended, organomegaly, tenderness Genitourinary Comment(s): deferred Integumentary: Present: normal turgor. Absent: jaundiced, rash, ulcer Neurologic: Present: CNII-XII intact. Absent: focal deficits Musculoskeletal: Present: gait normal, strength equal bilaterally - Labs CBC & Chem 7: 02/20/24 06:56 02/20/24 06:56 Labs: Abnormal Lab Results - Last 24 Hours (Table) 02/18/24 Range/Units 05:30 HDL Cholesterol 76.80 H (40.00-60.00) mg/dL Assessment and Plan Assessment: 1. Acute anterior ST elevation myocardial infarction --Patient has been evaluated by cardiology in ED and is being taken to [facility] -2D echo is ordered and pending 2. Hypertension; patient takes amlodipine/benazepril 40/10 mg 1 daily; we will continue with home medications and monitor blood pressure closely for any further adjustments 3. Hyperlipidemia; patient has been placed on Lipitor 80 mg p.o. nightly by cardiology 4. Obesity; counseling done on need for weight reduction DVT prophylaxis SCDs/IV heparin; CODE STATUS; full code
[2024-02-20 10:49] VITALS: RESP 17; TEMP 98.2
--- NOTE | 2024-02-20 11:32 | P.PN ---
Subjective HISTORY OF PRESENT ILLNESS: The patient is a pleasant 43-year-old gentleman with a past medical history significant for morbid obesity and hypertension presented to the emergency department complaining of chest discomfort. The discomfort started the day before. The patient describes discomfort as a pressure and squeezing sensation across the chest with radiation to the left arm associated with shortness of breath but no dizziness or lightheadedness and no feeling of heart racing or fluttering and no presyncope or syncope and no sweating. The discomfort got worse within the last several hours and he decided to come to the emergency depa rtment for further evaluation. EKG in the emergency department reveals sinus mechanism with ST segment elevation in the anteroseptal leads. With that being said an emergent heart catheterization was advised and that revealed acute total occlusion of the proximal LAD with a large thrombus burden. The patient underwent successful PCI of the LAD with placement of drug-eluting stent in the proximal left anterior descending artery with adjunctive use of aspiration thrombectomy and removal of related thrombus. By the end we achieved TARIK-3 flow and the patient was asymptomatic with mild residual ST changes anteriorly. Procedure was performed from the right radial artery. The patient reports history of hypertension and he is overweight. He stated he drinks alcohol as well. No other comorbidities. No family history. The examination is remarkable for stable vital signs with a distant heart sounds and soft systolic murmur and clear breathing sounds bilaterally and no edema was noted in the lower extremities February 18, 2024 The patient was seen and evaluated this morning. He is asymptomatic and hemodynamically stable. He continues to be on dual antiplatelet therapy along with high intensity statin. The echo still pending. The examination is remarkable for stable vital signs with a clear breathing sounds bilaterally and regular rate and rhythm and no edema was noted and good right radial pulse. February 19, 2024 The patient was seen and evaluated this morning. He underwent an echo yesterday and that revealed cardiomyopathy with a EF between 35 to 40% with mid ventricular and apical hypokinesia. Clinically he is doing well. He is asymptomatic. The pressure has been marginally low. Currently he is on dual antiplatelet therapy along with lisinopril along with beta-miguel which I would consider adding small dose of Aldactone once the pressure is more stable. Examination is remarkable for stable vital signs besides marginally low blood pressure with clear breathing sounds bilaterally and no edema was noted. 02/20/2024 Patient examined this morning. Patient is sitting up in the chair. Patient currently denies chest pain or pressure. He denies shortness of breath. He has been up ambulating without difficulty. Vital signs are stable. PHYSICAL EXAM: VITAL SIGNS: Reviewed. GENERAL: Well-developed in no acute distress. NECK: Supple. No JVD or thyromegaly LUNGS: Respirations even and unlabored. Lungs essentially clear to auscultation bilaterally. HEART: Regular rate and rhythm. S1 and S2 heard. EXTREMITIES: Normal range of motion. No clubbing or cyanosis. Peripheral pulses intact. Trace bilateral lower extremity edema ASSESSMENT: STEMI, status post PCI of the LAD Large thrombus burden of LAD Ischemic cardiomyopathy, EF 35 to 40% Borderline hypotension History of hypertension History of hyperlipidemia Morbid obesity: BMI 46.7 PLAN: Continue dual antiplatelet therapy with aspirin and Brilinta for 12 months Continue high intensity statin. LDL goal less than 70. Continue additional cardiac medications Add Farxiga 10 mg daily Will consider adding Aldactone on an outpatient basis Patient is stable for discharge home today from a cardiac standpoint He is to follow-up in the office with Dr. Edwards post discharge Nurse practitioner note has been reviewed by physician. Signing provider agrees with the documented findings, assessment, and plan of care documented by CLINICAL TRAINING SPECIALIST as a scribe. Objective - Vital Signs Vital signs: Vital Signs Temp 98.2 F 02/20/24 08:15 Pulse 94 02/20/24 08:15 Resp 17 02/20/24 08:15 BP 123/74 02/20/24 08:15 Pulse Ox 96 02/20/24 08:15 FiO2 Intake & Output 02/19/24 02/20/24 02/20/24 18:59 06:59 18:59 Intake Total 540 5960 128 Balance 540 5960 128 Intake: IV 20 10 Invasive Line 1 20 10 Oral 540 5940 118 Other: Voiding Method Toilet Toilet Toilet # Voids 2 2 # Bowel Movements 0 - Labs CBC & Chem 7: 02/20/24 06:56 02/20/24 06:56 Labs: Abnormal Lab Results - Last 24 Hours (Table) 02/20/24 02/20/24 Range/Units 06:56 06:56 WBC 12.6 H (3.8-10.6) k/uL Neutrophils # 9.4 H (1.3-7.7) k/uL Sodium 136 L (137-145) mmol/L
[2024-02-20 11:54] VITALS: BP 106/79; PULSE 64
== END 2024-02-20 12:11 | disposition home or self-care (01) | DRG 322 ==
LOC: EC 14:19 → 2SICU 14:47 → 3SCARD 02-18 22:59
PROVIDERS: ADMIT Hospitalist; ATTEND Hospitalist
PROC: 027034Z Dilation of Coronary Artery, One Artery with Drug-eluting Intraluminal Device, Percutaneous Approach (ICD-10-PCS; principal; 2024-02-17 14:50)
PROC: 4A023N7 Measurement of Cardiac Sampling and Pressure, Left Heart, Percutaneous Approach (ICD-10-PCS; principal; 2024-02-17 14:50)
PROC: B240ZZ3 Ultrasonography of Single Coronary Artery, Intravascular (ICD-10-PCS; principal; 2024-02-17 14:50)
PROC: 02C03ZZ Extirpation of Matter from Coronary Artery, One Artery, Percutaneous Approach (ICD-10-PCS; principal; 2024-02-17 14:50)
PROC: B2111ZZ Fluoroscopy of Multiple Coronary Arteries using Low Osmolar Contrast (ICD-10-PCS; principal; 2024-02-17 14:50)
DX: I21.09 ST elevation (STEMI) myocardial infarction involving other coronary artery of anterior wall (principal); Z68.42 Body mass index [BMI] 45.0-49.9, adult; I10 Essential (primary) hypertension; E66.01 Morbid (severe) obesity due to excess calories; E78.5 Hyperlipidemia, unspecified; I95.89 Other hypotension; I49.3 Ventricular premature depolarization; I25.5 Ischemic cardiomyopathy; I25.10 Atherosclerotic heart disease of native coronary artery without angina pectoris; Z28.310 Unvaccinated for COVID-19; Z71.3 Dietary counseling and surveillance; Z79.899 Other long term (current) drug therapy
CPT/HCPCS: 36415; 71045; 76937; 80048; 80053; 80061; 83735; 84484; 85025; 85027; 85610; 85730; 92978; 93005; 93306; 93458; 94760; 96374; 99291